=== PATIENT | female | born 1955 | race Caucasian/White ===

== ENCOUNTER 2017-02-09 10:37 | Day surgery (SDC) | payer OTHER ==
[2017-02-07 10:31] VITALS: BMI 20.1
[~2017-02-09 10:37] MED LIST: LACTATED RINGERS 1,000 ML IV SCH
[2017-02-09 11:02] VITALS: TEMP 98.4
[2017-02-09] MEDS ORDERED: PROPOFOL 10 MG/ML 20 ML VIAL IV ONE (11:26)
--- NOTE | 2017-02-09 11:44 | P.PCN ---
Date of Procedure: 02/09/17 Procedure(s) Performed: BRIEF HISTORY: Patient is a 61-year-old pleasant female, scheduled for an elective colonoscopy as a part of screening for colonic neoplasia. PROCEDURE PERFORMED: Colonoscopy with snare polypectomy PREOPERATIVE DIAGNOSIS: Screening for colon cancer IV sedation per Anesthesia. PROCEDURE: After informed consent was obtained, the patient, was brought into the endoscopy unit. IV sedation was administered by Anesthesia under continuous monitoring. Digital rectal examination was normal. Initially the Olympus CF- 160 flexible video colonoscope was then inserted in the rectum, gradually advanced into the cecum without any difficulty. Careful examination was performed as the scope was gradually being withdrawn. Ileocecal valve and the appendiceal orifice were visualized and appeared normal. Prep was excellent. In the cecum there were 2 small polyps measuring 5 and admitted size both of which were removed by snare polypectomy. Mucosa of the cecum, ascending colon appeared normal. In the hepatic flexure there were 2 polyps measuring 15 mm and 1 cm in size removed by snare polypectomy. The rest of the transverse colon , descending colon, sigmoid colon, and rectum appeared normal. in the sigmoid colon there was a 1 cm polyp removed by snare polypectomy. Retroflexion was performed in the rectum and no lesions were seen. The patient tolerated the procedure well. IMPRESSION: 5 mm 2 cecal polyps status post polypectomy 1 cm and 5 mm hepatic flexure polyps status post snare polypectomy 1 m sigmoid colon polyp status post snare polypectomy RECOMMENDATIONS: Findings of this examination were discussed with the patient as well as her family. She was advised to follow with the biopsy results. If the biopsy shows a tubular adenoma she can have a repeat colonoscopy in 5 years.
[2017-02-09 12:04] VITALS: BP 101/70; PULSE 75; RESP 18
== END 2017-02-09 12:38 | disposition home or self-care (01) ==
LOC: ORWHC2ENDO 10:37
PROVIDERS: ATTEND Internal Medicine Gastroenterology
DX: Z12.11 Encounter for screening for malignant neoplasm of colon (principal); D12.0 Benign neoplasm of cecum; D12.3 Benign neoplasm of transverse colon; D12.5 Benign neoplasm of sigmoid colon; Z86.010 Personal history of colon polyps; Z79.899 Other long term (current) drug therapy; G43.909 Migraine, unspecified, not intractable, without status migrainosus; K21.9 Gastro-esophageal reflux disease without esophagitis
CPT/HCPCS: 88305; 45385; J2704

== ENCOUNTER → 2018-02-22 | Outpatient (CLI) | payer BC ==
--- NOTE | 2018-02-22 18:29 | US ---
EXAMINATION TYPE: US carotid duplex BILAT DATE OF EXAM: 02/22/2018 COMPARISON: NONE CLINICAL HISTORY: I65.29 OCCLUSION AND STENOSIS OF CAROTID ARTERY. EXAM MEASUREMENTS: RIGHT: Peak Systolic Velocity (PSV) cm/sec ----- Right CCA: 72.1 ----- Right ICA: 91.0 ----- Right ECA: 89.5 ICA/CCA ratio: 1.3 RIGHT: End Diastole cm/sec ----- Right CCA: 19.8 ----- Right ICA: 29.9 ----- Right ECA: 27.0 LEFT: Peak Systolic Velocity (PSV) cm/sec ----- Left CCA: 88.2 ----- Left ICA: 107.6 ----- Left ECA: 95.3 ICA/CCA ratio: 1.2 LEFT: End Diastole cm/sec ----- Left CCA: 26.8 ----- Left ICA: 47.8 ----- Left ECA: 22.8 VERTEBRALS (direction of flow): Right Vertebral: Antegrade Left Vertebral: Antegrade Rhythm: Arrhythmia noted in image 46 on the left side Moderate amount of plaque visualized in bilateral bulbs. No elevated velocities, no significant steno sis. IMPRESSION: There is antegrade flow in the vertebral arteries. The images and measurements suggest l ess than 25% stenosis in both internal carotid arteries. Criteria for Assigning % of Stenosis / Diameter reduction (Estimation based on the indirect measurements of the internal carotid artery velocities (ICA PSV). 1. Normal (no stenosis)=ICA PSV < 125 cm/s: ratio < 2.0: ICA EDV<40 cm/s. 2. Less than 50% stenosis=ICA PSV < 125 cm/s: ratio < 2.0: ICA EDV<40 cm/s. 3. 50 to 69% stenosis=ICA PSV of 125 to 230 cm/s: ration 2.0 ? 4.0: ICA EDV 40-100 cm/s. 4. Greater than 70% stenosis to near occlusion= ICA PSV > 230 cm/s: ratio > 4.0: ICA EDV > 100 cm/s. 5. Near occlusion= ICA PSV velocities may be low or undetectable: variable ratio and ICA EDV. 6. Total occlusion=unable to detect flow.
== END | disposition home or self-care (01) ==
LOC: RADUSWWP 16:45
PROVIDERS: ATTEND Family Medicine
DX: I65.29 Occlusion and stenosis of unspecified carotid artery (principal)
CPT/HCPCS: 93880

== ENCOUNTER 2022-10-01 08:52 | Day surgery (SDC) | payer OTHER, MEDICARE ==
[~2022-10-01 08:52] MED LIST changes: +LIDOCAINE 1% (10MG/ML) FOR IV START INTRADERMA PRN
[2022-10-01 10:06] VITALS: TEMP 97.7
[2022-10-01] MEDS ORDERED: LIDOCAINE 2% INJ 20 MG/ML (2 ML VIAL) ONE (11:23)
[2022-10-01] MEDS ORDERED: PROPOFOL 10 MG/ML 20 ML VIAL IV ONE (11:23)
[2022-10-01] MEDS ORDERED: LACTATED RINGERS 1,000 ML IV ONE (11:24)
--- NOTE | 2022-10-01 11:40 | P.PCN ---
Date of Procedure: 10/01/22 Procedure(s) Performed: BRIEF HISTORY: Patient is a 67-year-old pleasant female scheduled for an elective colonoscopy as a part of evaluation of prior history of colon polyps. Last colonoscopy was 5 years ago. PROCEDURE PERFORMED: Colonoscopy. PREOPERATIVE DIAGNOSIS: History of colon polyps. IV sedation per Anesthesia. PROCEDURE: After informed consent was obtained, the patient, was brought into the endoscopy unit. IV sedation was administered by Anesthesia under continuous monitoring. Digital rectal examination was normal. Initially the Olympus CF-160 flexible video colonoscope was then inserted in the rectum, gradually advanced into the cecum without any difficulty. Careful examination was performed as the scope was gradually being withdrawn. Ileocecal valve and the appendiceal orifice were visualized and appeared normal. Prep was excellent. Mucosa of the cecum, ascending colon, transverse colon, descending colon, sigmoid colon, and rectum appeared normal. Retroflexion was performed in the rectum and no lesions were seen. The patient tolerated the procedure well. IMPRESSION: Normal-appearing colon from rectum to cecum with no evidence of colorectal neoplasia. RECOMMENDATIONS: Findings of this examination were discussed with the patient as well as a family. She was advised to have a repeat colonoscopy in 5 years from now because of prior history of colon polyps.
[2022-10-01 12:23] VITALS: BP 124/84; PULSE 61; RESP 18
== END 2022-10-01 12:23 | disposition home or self-care (01) ==
LOC: ORWHC2ENDO 08:52
PROVIDERS: ATTEND Internal Medicine Gastroenterology
DX: Z12.11 Encounter for screening for malignant neoplasm of colon (principal); I10 Essential (primary) hypertension; F17.210 Nicotine dependence, cigarettes, uncomplicated; G43.909 Migraine, unspecified, not intractable, without status migrainosus; K21.9 Gastro-esophageal reflux disease without esophagitis; I69.312 Visuospatial deficit and spatial neglect following cerebral infarction; Z86.010 Personal history of colon polyps; Z79.899 Other long term (current) drug therapy
CPT/HCPCS: 45378; J2704; J2001

== ENCOUNTER → 2023-01-31 | Outpatient (CLI) | payer OTHER, MEDICARE ==
--- NOTE | 2023-01-31 13:44 | CT ---
EXAMINATION TYPE: CT chest wo con CT DLP: 213 mGycm, Automated exposure control for dose reduction was used. DATE OF EXAM: 01/31/2023 1:14 PM COMPARISON: None CLINICAL INDICATION:Female, 67 years old with history of J44.9 CHRONIC OBSTRUCTIVE PULMONARY DISEASE, ; PHH, COPD TECHNIQUE: Multiple axial images were obtained through the chest without IV contrast. Lack of IV or o ral contrast limits evaluation of solid and hollow organ viscera. . Coronal and sagittal reformats re viewed. FINDINGS: LUNGS/ PLEURA: Moderate centrilobular emphysematous changes. No focal consolidation, pneumothorax, or pleural effusion. No suspicious pulmonary nodule or mass. AIRWAY: Patent and unremarkable.. HEART: Size within normal limits. No pericardial effusion. Moderate coronary arterial calcifications. . MEDIASTINUM: Enlarged 1.2 cm short axis subcarinal lymph node (series 3, age 24). VASCULATURE: Ectasia of the ascending thoracic aorta measuring up to 3.9 cm. MUSCULOSKELETAL: No acute osseous abnormalities. No aggressive osseous lesion. SOFT TISSUES/LYMPH NODES: Bilateral breast prosthesis. LOWER NECK: No significant findings. UPPER ABDOMEN: No significant findings. IMPRESSION: 1. No acute thoracic process. 2. Moderate COPD changes. 3. Ectasia of the ascending thoracic aorta measuring up to 3.9 cm. 4. Mildly enlarged nonspecific 1.2 cm short axis subcarinal lymph node.
== END | disposition home or self-care (01) ==
LOC: RADCTMAIN 12:38
PROVIDERS: ATTEND Family Medicine
DX: J44.9 Chronic obstructive pulmonary disease, unspecified (principal); I77.810 Thoracic aortic ectasia; R59.0 Localized enlarged lymph nodes
CPT/HCPCS: 71250

== ENCOUNTER → 2023-05-26 | Outpatient (CLI) | payer OTHER, MEDICARE ==
--- NOTE | 2023-05-26 12:13 | CT ---
EXAMINATION TYPE: CT chest wo con DATE OF EXAM: 05/26/2023 COMPARISON: Prior chest CT January 31, 2023 HISTORY: ENLARGED LYMPH NODES CT DLP: 193.0 mGycm. Automated Exposure Control for Dose Reduction was Utilized. TECHNIQUE: CT scan of the thorax is performed without IV contrast. FINDINGS: LUNGS: Moderate to advanced underlying emphysematous change greatest in the bilateral upper lobes is redemonstrated. No new focal consolidation. There is no pleural effusion or pneumothorax seen. The tracheobronchial tree is patent. MEDIASTINUM: Lack of IV contrast is noted to limit evaluation for mediastinal and especially hilar ad enopathy. Stable slightly enlarged 1.9 x 1.2 cm pericarinal lymph node axial image 24. Stable promine nt but subcentimeter additional scattered mediastinal lymph nodes. Severe three-vessel coronary arter y calcification is present. No cardiomegaly or pericardial effusion is seen. Ascending aortic aneury sm up to 3.8 cm noted on current study OTHER:. Bilateral breast implants redemonstrated. Slight scoliotic curvature or positioning again see n. IMPRESSION: Chronic emphysematous change without acute pulmonary process. Stable nonspecific slightly enlarged paracarinal lymph node. No new adenopathy is present.
== END | disposition home or self-care (01) ==
LOC: RADCTMAIN 11:40
PROVIDERS: ATTEND Family Medicine
DX: J43.9 Emphysema, unspecified (principal); R59.0 Localized enlarged lymph nodes
CPT/HCPCS: 71250

== ENCOUNTER → 2023-08-10 | Outpatient (CLI) | payer OTHER, MEDICARE ==
[2023-08-10 11:02] VITALS: BP 166/88; PULSE 99; RESP 15; TEMP 98.5
--- NOTE | 2023-08-10 12:28 | XR ---
EXAMINATION TYPE: XR lumbar spine 2 or 3V DATE OF EXAM: 08/10/2023 11:24 AM CLINICAL INDICATION:Female, 67 years old with history of M51.36 Other DDD; COMPARISON: None TECHNIQUE: XR lumbar spine 2 or 3V - Frontal, lateral and coned in L5-S1 lateral views of the spine. FINDINGS: No evidence of any acute osseous pathology. There is mild vertebral body wedging at multipl e levels.. There is scoliosis alignment of the lumbar vertebral bodies apex left L3. Scattered disc s pace narrowing. Multilevel marginal osteophyte formation throughout the visualized spine. There is fa cet joint arthropathy throughout the spine. Scattered at least mild neural foraminal stenosis. This c ourse of the arterial vasculature. IMPRESSION: 1. No acute fracture. 2. Moderate to severe degeneration with scoliosis.
--- NOTE | 2023-08-10 13:52 | P.PAINPG ---
PQRS Measure Charge Sheet Comment: HISTORY OF PRESENT ILLNESS: A 67 yr old female as a referral from Dr Hearn presents today w severe and chronic LBP > 30 yrs secondary to DDD, spondylosis and facet arthropathy without myelopathy for evaluation. Pt states pain level is provoked at 6 /10 in intensity, constant, localized in the lower lumbar spine, predominantly axial, dull in character w occasional shooting pain towards the back of the LLE. Pain is provoked by standing for periods > 20 min. Pain is alleviated by PT in the , medications (Zanaflex, Advil), repositioning and rest. Oswestry axial pain score at 31. PMH: OA, HTN, Hyperlipidemia, GERD, COPD, Glaucoma, Seasonal/ Indoor Allergies PSH: Colonoscopy (2016, 2022), SH: Hx of tobacco use, Occasional ETOH use, No illicit drug use FH: Non contributory All: See list Meds: See list REVIEW OF ORGAN SYSTEMS: CONSTITUTIONAL: No fevers or chills. No recent weight loss. NEUROLOGICAL: + numbness and tingling along the distal extremities. No seizure disorders or headaches. MUSCULOSKELETAL: + pain PSYCHIATRIC: Denies current depression or suicidal thoughts. Physical Examinations : Constitutional : Cooperative , not in acute distress . Neurologic : Cranial nerve II to XII intact. No focal neurological deficits. Psychiatric : alert & oriented x 3. Matching mood & appropriate affect. Judgment & insight intact. Musculoskeletal : Cervical Spine Motor strength in the deltoid and biceps: Normal right side. Normal Left side Motor strength biceps and the wrist extensors: Normal right side . Normal left side Motor strength in the triceps muscle: Normal right side. Normal left side Deep tendon reflexes: Normal at the biceps. Normal at Brachioradialis. Normal at triceps Vertebral body tenderness to deep palpation over Cervical facet loading test: positive bilaterally Spurling test: positive bilaterally Neck distraction test: positive bilaterally Nir sign: positive bilaterally Lumbar spine Motor strength lower extremities ,thigh and legs 5/5 Right side , 5/5 Left side Deep tendon reflexes : Normal Knee Jerk. Normal Ankle Jerk Vertebral body tenderness over Julio Test positive L4, L5 BL Lumbar facet Loading Test: positive Right / positive Left Range of motion of the lumbar spine Flexion 30 degrees, extension 10 degrees Straight Leg Raise test: Left/ Right positive at degree Paras test: positive right / positive left. Severe tenderness over the Sacroiliac joint on the Right / Left sides Gaenslen test: positive bilaterally Seated flexion test: positive bilaterally. Sacral spine : Severe tenderness over the Sacroiliac joint: right side / left side Range of motion: Flexion of the lumbar spine <60 degrees Range of motion: Extension of the lumbar spine <20 degrees Gaenslen's Test positive Paras test: positive right side / left side Thigh Thrust Test Sacral Thrust Test Imaging: None on file Assessment/ Plan : Lumbar DDD Recommendation of lumbar x ray and PT x 6 wks M51.36 May need additional imaging if indicated. All questions answered. I have spent greater than 30 minutes on patient care today. Dr Barrientos was available by phone for the evaluation of this patient. The time was used to review the medical records including relevant urine studies and Prescription history (MAPs), review of the available imaging, evaluation and examination of the patient, coordination of care with the medical staff and if applicable referring physicians, as well as creation of the medical record PQRS Narrative: Smoking Status Current every day smoker Home Medications: Ambulatory Orders raNITIdine HCL [Zantac] 75 mg PO DAILY PRN 02/07/17 Cetirizine HCl [Zyrtec] 10 mg PO DAILY 09/28/22 Losartan Potassium 100 mg PO DAILY 09/28/22 Omeprazole 40 mg PO DAILY 09/28/22 Controlled Substance Measures - Controlled Substance Measures Is patient prescribed a controlled substance at discharge?: No
== END ==
LOC: PNWHC3 10:26
PROVIDERS: ATTEND Specialist
DX: M51.36 Other intervertebral disc degeneration, lumbar region (principal); M41.9 Scoliosis, unspecified; M47.817 Spondylosis without myelopathy or radiculopathy, lumbosacral region; F17.200 Nicotine dependence, unspecified, uncomplicated
CPT/HCPCS: 72100; 99211

== ENCOUNTER → 2023-09-21 | Outpatient (CLI) | payer OTHER, MEDICARE ==
[2023-09-21 10:43] VITALS: BP 177/91; PULSE 71; RESP 16; TEMP 96.4
--- NOTE | 2023-09-21 13:36 | P.PAINPG ---
PQRS Measure Charge Sheet Comment: HISTORY OF PRESENT ILLNESS: A 67 yr old female presents today w severe and chronic LBP > 30 yrs secondary to DDD, spondylosis and facet arthropathy without myelopathy for evaluation. Pt states pain level is provoked at 8 /10 in intensity, constant, localized in the lower lumbar spine, predominantly axial, dull in character w occasional shooting pain towards the back of the LLE. Pain is provoked by standing for periods > 20 min. Pain is alleviated by PT x 6 wks in Jul-Aug 2023, physician guided exercises/ stretches daily since Aug 2023, use of a TENS unit at PT, medications, repositioning and rest. Oswestry axial pain score at 30. Interventional procedures include Medications include Zanaflex, Advil REVIEW OF ORGAN SYSTEMS: CONSTITUTIONAL: No fevers or chills. No recent weight loss. NEUROLOGICAL: + numbness and tingling along the distal extremities. No seizure disorders or headaches. MUSCULOSKELETAL: + pain PSYCHIATRIC: Denies current depression or suicidal thoughts. Physical Examinations : Constitutional : Cooperative , not in acute distress . Neurologic : Cranial nerve II to XII intact. No focal neurological deficits. Psychiatric : alert & oriented x 3. Matching mood & appropriate affect. Judgment & insight intact. Musculoskeletal : Cervical Spine Motor strength in the deltoid and biceps: Normal right side. Normal Left side Motor strength biceps and the wrist extensors: Normal right side . Normal left side Motor strength in the triceps muscle: Normal right side. Normal left side Deep tendon reflexes: Normal at the biceps. Normal at Brachioradialis. Normal at triceps Vertebral body tenderness to deep palpation over Cervical facet loading test: positive bilaterally Spurling test: positive bilaterally Neck distraction test: positive bilaterally Nir sign: positive bilaterally Lumbar spine Motor strength lower extremities ,thigh and legs 5/5 Right side , 5/5 Left side Deep tendon reflexes : Normal Knee Jerk. Normal Ankle Jerk Vertebral body tenderness over Julio Test positive L4, L5 BL Lumbar facet Loading Test: positive Right / positive Left Range of motion of the lumbar spine Flexion 30 degrees, extension 10 degrees Straight Leg Raise test: Left/ Right positive at degree Paras test: positive right / positive left. Severe tenderness over the Sacroiliac joint on the Right / Left sides Gaenslen test: positive bilaterally Seated flexion test: positive bilaterally. Sacral spine : Severe tenderness over the Sacroiliac joint: right side / left side Range of motion: Flexion of the lumbar spine <60 degrees Range of motion: Extension of the lumbar spine <20 degrees Gaenslen's Test positive Paras test: positive right side / left side Thigh Thrust Test Sacral Thrust Test Imaging: Lumbar x ray from 08/10/23 reviewed Assessment/ Plan : Lumbar DDD Recommendation of TENS unit at home, lumbar MRI M51.36 . All questions answered. I have spent greater than 30 minutes on patient care today. Dr Barrientos was available by phone for the evaluation of this patient. The time was used to review the medical records including relevant urine studies and Prescription history (MAPs), review of the available imaging, evaluation and examination of the patient, coordination of care with the medical staff and if applicable referring physicians, as well as creation of the medical record PQRS Narrative: Smoking Status Current every day smoker Hx Alcohol Use (MH) No Home Medications: Ambulatory Orders raNITIdine HCL [Zantac] 75 mg PO DAILY PRN 02/07/17 Cetirizine HCl [Zyrtec] 10 mg PO DAILY 09/28/22 Losartan Potassium 100 mg PO DAILY 09/28/22 Omeprazole 40 mg PO DAILY 09/28/22 Controlled Substance Measures - Controlled Substance Measures Is patient prescribed a controlled substance at discharge?: No
== END ==
LOC: PNWHC3 08:28
PROVIDERS: ATTEND Specialist
DX: M51.36 Other intervertebral disc degeneration, lumbar region (principal); M47.816 Spondylosis without myelopathy or radiculopathy, lumbar region; G89.29 Other chronic pain; F17.200 Nicotine dependence, unspecified, uncomplicated
CPT/HCPCS: 99211

== ENCOUNTER → 2023-10-19 | Outpatient (CLI) | payer OTHER, MEDICARE ==
--- NOTE | 2023-10-20 23:18 | MR ---
EXAMINATION TYPE: MR lumbar spine wo con DATE OF EXAM: 10/19/2023 COMPARISON: None HISTORY: Chronic lower back pain, left side CONTRAST: 0 mL intravenous Gadavist. TECHNIQUE: Multiplanar, multisequence images of the lumbar spine were acquired. FINDINGS: Degenerative disc changes with loss of disc height are present L2-3 L3-4 L4-5. Grade 1 ret rolisthesis of L3 on L4 and L4 posterior on L5 is present. There is grade 1-2 anterolisthesis of L5 a nteriorly on S1. L5-S1: There is loss of disc height this level. No spinal canal stenosis. There is a grade 2 spondylo listhesis of L5 anteriorly on S1. Bilateral foraminal stenosis present. Correlate with S1 radicular s ymptoms . L4-L5: Mild disc degenerative changes are present No spinal canal stenosis. Mild left foraminal gulshan rowing present . L3-L4: Degenerative disc changes are present. No residual disc bulge is evident. No spinal canal sten osis is present. Facet hypertrophy is present greater on the left. No lateral canal narrowing is evid ent. Mild foraminal narrowing is present L2-L3: Mild residual disc bulge is present with anterior thecal sac flattening. Facet hypertrophy and ligamentum flavum laxity is present with right posterior lateral thecal sac compression. No spinal canal stenosis. Moderate right foraminal stenosis is present. Mild left foraminal narrowing is prese nt . L1-L2: No significant disc bulge or disc herniation. No spinal canal stenosis. No foraminal stenosi s. . T12-L1: No significant disc bulge or disc herniation. No spinal canal stenosis. No foraminal stenos is. IMPRESSION: 1. 3 level degenerative disc changes. 2. Grade 1 retrolisthesis of C3 on 4 and 4 on 5. A grade 2 spondylolisthesis of L5 anteriorly on S1 a ppears to be present. 3. Very severe foraminal stenosis bilaterally L5-S1 there is some moderate to severe foraminal narrow ing in the mid lumbar spine
== END | disposition home or self-care (01) ==
LOC: RADMRIMAIN 11:32
PROVIDERS: ATTEND Specialist
DX: M51.36 Other intervertebral disc degeneration, lumbar region (principal); M43.17 Spondylolisthesis, lumbosacral region; M43.12 Spondylolisthesis, cervical region; M99.73 Connective tissue and disc stenosis of intervertebral foramina of lumbar region
CPT/HCPCS: 72148

== ENCOUNTER → 2023-10-31 | Outpatient (CLI) | payer OTHER, MEDICARE ==
[2023-10-31 10:31] VITALS: BP 172/92; PULSE 72; RESP 16; TEMP 96.9
--- NOTE | 2023-10-31 15:02 | P.PAINPG ---
PQRS Measure Charge Sheet Comment: HISTORY OF PRESENT ILLNESS: A 68 yr old female presents today w severe and chronic LBP > 30 yrs secondary to DDD, spondylosis and facet arthropathy without myelopathy for evaluation. Pt states pain level is provoked at 8 /10 in intensity, constant, localized in the lower lumbar spine, predominantly axial, dull in character w occasional shooting pain towards the back of the LLE. Pain is provoked by standing for periods > 20 min. Pain is alleviated by PT x 6 wks in Jul-September 2023, physician guided exercises/ stretches daily since Aug 2023, use of a TENS unit at PT, medications, repositioning and rest. Oswestry axial pain score at 30. Interventional procedures include Medications include Zanaflex, Advil REVIEW OF ORGAN SYSTEMS: CONSTITUTIONAL: No fevers or chills. No recent weight loss. NEUROLOGICAL: + numbness and tingling along the distal extremities. No seizure disorders or headaches. MUSCULOSKELETAL: + pain PSYCHIATRIC: Denies current depression or suicidal thoughts. Physical Examinations : Constitutional : Cooperative , not in acute distress . Neurologic : Cranial nerve II to XII intact. No focal neurological deficits. Psychiatric : alert & oriented x 3. Matching mood & appropriate affect. Judgment & insight intact. Musculoskeletal : Cervical Spine Motor strength in the deltoid and biceps: Normal right side. Normal Left side Motor strength biceps and the wrist extensors: Normal right side . Normal left side Motor strength in the triceps muscle: Normal right side. Normal left side Deep tendon reflexes: Normal at the biceps. Normal at Brachioradialis. Normal at triceps Vertebral body tenderness to deep palpation over Cervical facet loading test: positive bilaterally Spurling test: positive bilaterally Neck distraction test: positive bilaterally Nir sign: positive bilaterally Lumbar spine Motor strength lower extremities ,thigh and legs 5/5 Right side , 5/5 Left side Deep tendon reflexes : Normal Knee Jerk. Normal Ankle Jerk Vertebral body tenderness over L5 Julio Test positive L4- L5 L > R Lumbar facet Loading Test: positive Right / positive Left Range of motion of the lumbar spine Flexion 30 degrees, extension 10 degrees Straight Leg Raise test: Left/ Right positive at degree Paras test: positive right / positive left. Severe tenderness over the Sacroiliac joint on the Right / Left sides Gaenslen test: positive bilaterally Seated flexion test: positive bilaterally. Sacral spine : Severe tenderness over the Sacroiliac joint: right side / left side Range of motion: Flexion of the lumbar spine <60 degrees Range of motion: Extension of the lumbar spine <20 degrees Gaenslen's Test positive Paras test: positive right side / left side Thigh Thrust Test Sacral Thrust Test Imaging: Lumbar x ray from 08/10/23 reviewed MRI non contrast of the lumbar spine form 10/20/23 reviewed Assessment/ Plan : Lumbar DDD Recommendation of L paramedian MIGUEL ANGEL L5-S1 #1. May need a series of injections for optimal pain relief. Risks, benefits of procedure discussed and patient verbalized understanding. Protocol for discontinuation/continuation of medication surrounding procedure discussed. All questions answered. I have spent greater than 30 minutes on patient care today. Dr Barrientos was available by phone for the evaluation of this patient. The time was used to review the medical records including relevant urine studies and Prescription history (MAPs), review of the available imaging, evaluation and examination of the patient, coordination of care with the medical staff and if applicable referring physicians, as well as creation of the medical record PQRS Narrative: Smoking Status Current every day smoker Hx Alcohol Use (MH) No Home Medications: Ambulatory Orders raNITIdine HCL [Zantac] 75 mg PO DAILY PRN 02/07/17 Cetirizine HCl [Zyrtec] 10 mg PO DAILY 09/28/22 Losartan Potassium 100 mg PO DAILY 09/28/22 Omeprazole 40 mg PO DAILY 09/28/22 Controlled Substance Measures - Controlled Substance Measures Is patient prescribed a controlled substance at discharge?: No
== END ==
LOC: PNWHC3 10:11
PROVIDERS: ATTEND Specialist
DX: M51.36 Other intervertebral disc degeneration, lumbar region (principal); F17.200 Nicotine dependence, unspecified, uncomplicated
CPT/HCPCS: 99211

== ENCOUNTER 2023-11-18 09:59 | Day surgery (SDC) | payer OTHER, MEDICARE ==
[~2023-11-18 09:59] MED LIST changes: -LIDOCAINE 1% (10MG/ML) FOR IV START INTRADERMA PRN
[2023-11-18 10:27] VITALS: TEMP 97.1
[2023-11-18] MEDS ORDERED: methylPREDNISolone ACETATE 80 MG/ML 1 ML VIAL ONE (10:59)
[2023-11-18] MEDS ORDERED: IOPAMIDOL M200 10 ML VIAL ONE (10:59)
--- NOTE | 2023-11-18 11:05 | P.PCN ---
Date of Procedure: 11/18/23 Procedure(s) Performed: PREOPERATIVE DIAGNOSIS: 1- Lumbar Degenerative Disc Diseases 2-Lumbar spondylosis with Facet arthropathy without myelopathy. 3-lumbar spinal stenosis POSTOPERATIVE DIAGNOSIS: 1-lumbar degenerative disc disease. 2-lumbar spondylosis with facet arthropathy without myelopathy. 3-lumbar spinal stenosis. PROCEDURE 1. Lumbar epidural steroid injection under fluoroscopic guidance at the L5-S1 level. (Fluoroscopy imaging was available in radiology department) 2. Lumbar epidurogram. ANESTHESIA: Lidocaine 1% 3 and then only. EBL: Minimal PROCEDURE INDICATION: The patient with low back pain and radiculitis symptoms unresponsive to conservative treatment. Fluoroscopy was used to optimize visualization of the needle placement and to maximize safety. PROCEDURE DESCRIPTION / TECHNIQUE: The patient was seen and identified in the preoperative area. Risks, benefits, complications including but not limited to infections ,bleeding ,allergic reaction to the medications ,nerve damage and not complete pain releife , and alternatives were discussed with the patient. The patient agreed to proceed with the procedure and signed the consent, and vital signs were stable. Patient was taken to the OR and time out was completed. The patient was placed in the prone position on procedure table and a pillow was placed under the abdomen to reduce lumbar lordosis. The lumbosacral area was prepped and draped in the usual sterile fashion.ere closely monitored during the procedure. Vital signs was monitered during the entire procedure. Using anterior-posterior fluoroscopy, the L5-S1 interlaminar space was identified and the skin over this site was marked and then infiltrated with 1% lidocaine subcutaneously. Subsequently, a 20-gauge Tuohy epidural needle was inserted and advanced toward the epidural space using the ``Loss of resistance technique and guided by AP and lateral fluoroscopy. The correct needle position in the epidural space was verified with the injection of 2 mL of the water soluble contrast dye Isovue 200 contrast and observing an excellent epidurogram with the epidural spread of the dye, after negative aspiration for blood and CSF and in the absence of paresthesias. Again after negative aspiration, a 5 ml mixture containing 60 mg of Depo-medrol ( Preservetive Free ), and 2 ml of preservative free Normal Saline, and 2 ml of preservative free lidocaine 1% solution was injected and a washout of epidurogram was seen. Needle was withdrawn intact, skin was cleansed, and bandages were applied. COMPLICATIONS: None DISPOSITION / PLANS: The patient was placed in a supine position and transferred to the recovery area in a stable condition for observation. There was no evidence of lower extremity motor or sensory deficit after the procedure. Patient was discharged from the recovery room after meeting discharge criteria. Home discharge instructions were given to the patient by the staff. The patient was reexamined prior to discharge. The patient will schedule a follow up in the clinic in 2-4 weeks.
--- NOTE | 2023-11-18 11:39 | FL ---
EXAMINATION TYPE: FL guided pain mgmt statistic DATE OF EXAM: 11/18/2023 FLUOROSCOPY LUMBAR RADICULOPATHY Lumbar pain injection procedure. DR. KIRKLAND FLUORO 2 SEC DAP .[id number] mGycm2
[2023-11-18 11:43] VITALS: BP 103/72; RESP 18
[2023-11-18 11:46] VITALS: PULSE 68
== END 2023-11-18 11:45 | disposition home or self-care (01) ==
LOC: ORPAIN 09:59
PROVIDERS: ATTEND Specialist
DX: M48.061 Spinal stenosis, lumbar region without neurogenic claudication (principal); M47.26 Other spondylosis with radiculopathy, lumbar region; M51.16 Intervertebral disc disorders with radiculopathy, lumbar region; Z79.82 Long term (current) use of aspirin; Z79.899 Other long term (current) drug therapy
CPT/HCPCS: 62323; Q9966; J1010

== ENCOUNTER → 2023-12-07 | Outpatient (CLI) | payer OTHER, MEDICARE ==
[2023-12-07 11:41] VITALS: BP 180/80; PULSE 65; RESP 16
--- NOTE | 2023-12-07 14:04 | P.PAINPG ---
PQRS Measure Charge Sheet Comment: HISTORY OF PRESENT ILLNESS: A 68 yr old female presents today w severe and chronic LBP > 30 yrs secondary to DDD, spondylosis and facet arthropathy without myelopathy for evaluation s/p MIGUEL ANGEL L5-S1 #1. Pt states she experienced 0 % pain relief x 3 wks s/p procedure. Pt states pain level is provoked at 7 /10 in intensity, constant, localized in the lower lumbar spine, predominantly axial, dull in character w occasional shooting pain towards the back of the LLE. Pain is provoked by standing for periods > 20 min. Pain is alleviated by PT x 6 wks in Jul-September 2023, physician guided exercises/ stretches daily since Aug 2023, use of a TENS unit at PT, medications, repositioning and rest. Oswestry axial pain score at 30. Interventional procedures include MIGUEL ANGEL L5-S1 x1 Medications include Zanaflex, Advil REVIEW OF ORGAN SYSTEMS: CONSTITUTIONAL: No fevers or chills. No recent weight loss. NEUROLOGICAL: + numbness and tingling along the distal extremities. No seizure disorders or headaches. MUSCULOSKELETAL: + pain PSYCHIATRIC: Denies current depression or suicidal thoughts. Physical Examinations : Constitutional : Cooperative , not in acute distress . Neurologic : Cranial nerve II to XII intact. No focal neurological deficits. Psychiatric : alert & oriented x 3. Matching mood & appropriate affect. Judgment & insight intact. Musculoskeletal : Cervical Spine Motor strength in the deltoid and biceps: Normal right side. Normal Left side Motor strength biceps and the wrist extensors: Normal right side . Normal left side Motor strength in the triceps muscle: Normal right side. Normal left side Deep tendon reflexes: Normal at the biceps. Normal at Brachioradialis. Normal at triceps Vertebral body tenderness to deep palpation over Cervical facet loading test: positive bilaterally Spurling test: positive bilaterally Neck distraction test: positive bilaterally Nir sign: positive bilaterally Lumbar spine Motor strength lower extremities ,thigh and legs 5/5 Right side , 5/5 Left side Deep tendon reflexes : Normal Knee Jerk. Normal Ankle Jerk Vertebral body tenderness Julio Test positive Lumbar facet Loading Test: positive Right / positive Left L4-L5, L5-S1 Range of motion of the lumbar spine Flexion 30 degrees, extension 10 degrees Straight Leg Raise test: Left/ Right positive at degree Paras test: positive right / positive left. Severe tenderness over the Sacroiliac joint on the Right / Left sides Gaenslen test: positive bilaterally Seated flexion test: positive bilaterally. Sacral spine : Severe tenderness over the Sacroiliac joint: right side / left side Range of motion: Flexion of the lumbar spine <60 degrees Range of motion: Extension of the lumbar spine <20 degrees Gaenslen's Test positive Paras test: positive right side / left side Thigh Thrust Test Sacral Thrust Test Imaging: Lumbar x ray from 08/10/23 reviewed MRI non contrast of the lumbar spine form 10/20/23 reviewed Assessment/ Plan : Lumbar DDD Recommendation of BL MBB L4-L5, L5-S1 #1. May need a series of injections, u p until RFA, for optimal pain relief. Risks, benefits of procedure discussed and patient verbalized understanding. Protocol for discontinuation/continuation of medication surrounding procedure discussed. Minimal anesthesia including Fentanyl and Versed if indicated. Recommendation of medication management. [place] 5/325mg #60 w 1 RF. Use, side effects, adverse reactions, safe storage discussed. Opiate/ narcotic agreement signed 12/07/23. All questions answered. I have spent greater than 30 minutes on patient care today. Dr Barrientos was available by phone for the evaluation of this patient. The time was used to review the medical records including relevant urine studies and Prescription history (MAPs), review of the available imaging, evaluation and examination of the patient, coordination of care with the medical staff and if applicable referring physicians, as well as creation of the medical record PQRS Narrative: Smoking Status Current every day smoker Hx Alcohol Use (MH) No Home Medications: Ambulatory Orders Cetirizine HCl [Zyrtec] 10 mg PO DAILY 09/28/22 Losartan Potassium 100 mg PO DAILY 09/28/22 Omeprazole 40 mg PO DAILY 09/28/22 Aspirin [[place] Aspirin EC] 81 mg PO DAILY 11/09/23 HYDROcodone/APAP 5-325MG [[place] 5-325] 1 tab PO Q4HR PRN 3 Days #15 tab 11/09/23 Ibuprofen [Advil] 400 mg PO Q6HR PRN 11/09/23 Levocetirizine Dihydrochloride [Xyzal] 5 mg PO DAILY 11/09/23 Pravastatin Sodium [Pravachol] 20 mg PO DAILY 11/09/23 Sennosides/Docusate Sodium [Senna-S 8.6-50 mg Tablet] 2 each PO DAILY 11/09/23 Controlled Substance Measures - Controlled Substance Measures Is patient prescribed a controlled substance at discharge?: Yes When asked, does pt state using other controlled substances?: No If prescribed controlled substance>3 days was MAPS reviewed?: Yes If Rx opioid, was Start Talking consent form obtained?: Yes Was information provided regarding opioid addiction?: Yes
== END ==
LOC: PNWHC3 11:13
PROVIDERS: ATTEND Specialist
DX: M51.37 Other intervertebral disc degeneration, lumbosacral region (principal); F17.200 Nicotine dependence, unspecified, uncomplicated
CPT/HCPCS: 99211

== ENCOUNTER 2023-12-29 11:01 | Day surgery (SDC) | payer OTHER, MEDICARE ==
[2023-12-29] MEDS ORDERED: LACTATED RINGERS 1,000 ML BAG ONE (13:25)
[2023-12-29] MEDS ORDERED: MIDAZOLAM 2 MG/2 ML VIAL ONE (14:05)
[2023-12-29] MEDS ORDERED: ROPIVACAINE 5MG/ML 20ML VIAL ONE (14:05)
[2023-12-29] MEDS ORDERED: fentaNYL (PF) 50 MCG/ML 2 ML AMP ONE (14:05)
--- NOTE | 2024-02-21 18:19 | FL ---
EXAMINATION TYPE: FL guided pain mgmt statistic DATE OF EXAM: 01/19/2024 1:09 PM COMPARISON: Pre Operative Images if available both CT/MRI or plain film CLINICAL INDICATION: Female, 68 years old with history of LUMBAR DDD PAIN SERVICES; TECHNIQUE: FL guided pain mgmt statistic, multiple fluoroscopic images provided for procedure. Total fluoroscopy time: 10 seconds Total submitted images to PACS: 4 DAP: [id number] mGym2 Gycm2 uGym2 cGycm2 or equivalent. FINDINGS: Fluoroscopic images during injection for pain management demonstrate multilevel degeneration changes throughout the spine. No evidence for fracture. No acute process identified. IMPRESSION: 1. No evidence for intraoperative complication. 2. Please see the operative/procedural note for further details. [facility], , 02/21/2024 6:17 PM
== END 2023-12-29 14:50 ==
LOC: ORPAIN 11:01
PROVIDERS: ATTEND Anesthesiology
DX: M47.816 Spondylosis without myelopathy or radiculopathy, lumbar region (principal); Z79.82 Long term (current) use of aspirin
CPT/HCPCS: 64494 ×2; 64493; J2250; J3010; J2795

== ENCOUNTER → 2024-02-01 | Outpatient (CLI) | payer OTHER, MEDICARE ==
[2024-02-01 11:33] VITALS: BP 164/84; PULSE 76; RESP 19
--- NOTE | 2024-02-08 11:32 | P.PAINPG ---
Objective - Vital Signs Vital signs: Intake & Output 01/31/24 02/01/24 02/01/24 18:59 06:59 18:59 Weight 130 kg PQRS Measure Charge Sheet Comment: HISTORY OF PRESENT ILLNESS: A 68 yr old female presents today w severe and chronic LBP > 30 yrs secondary to radiculopathy, spondylosis and facet arthropathy without myelopathy for evaluation s/p BL MBB L4-L5, L5-S1 #1. Pt states she experienced 0 % pain relief s/p procedure. Pt states pain level is provoked at 7 /10 in intensity, constant, localized in the lower lumbar spine, predominantly axial, dull in character w occasional shooting pain towards the back of the LLE. Pain is provoked by standing for periods > 20 min. Pain is alleviated by PT x 6 wks in Jul-September 2023, physician guided exercises/ stretches daily since Aug 2023, use of a TENS unit at PT, medications, repositioning and rest. Interventional procedures include MIGUEL ANGEL L5-S1 x1, BL MBB L4-L5/ L5-S1 x1 Medications include Zanaflex, Advil REVIEW OF ORGAN SYSTEMS: CONSTITUTIONAL: No fevers or chills. No recent weight loss . NEUROLOGICAL: + numbness and tingling along the distal extremities. No seizure disorders or headaches. MUSCULOSKELETAL: + pain PSYCHIATRIC: Denies current depression or suicidal thoughts. Physical Examinations : Constitutional : Cooperative , not in acute distress . Neurologic : Cranial nerve II to XII intact. No focal neurological deficits. Psychiatric : alert & oriented x 3. Matching mood & appropriate affect. Judgment & insight intact. Musculoskeletal : Cervical Spine Motor strength in the deltoid and biceps: Normal right side. Normal Left side Motor strength biceps and the wrist ext ensors: Normal right side . Normal left side Motor strength in the triceps muscle: Normal right side. Normal left side Deep tendon reflexes: Normal at the biceps. Normal at Brachioradialis. Normal at triceps Vertebral body tenderness to deep palpation over Cervical facet loading test: positive bilaterally Spurling test: positive bilaterally Neck distraction test: positive bilaterally Nir sign: positive bilaterally Lumbar spine Motor strength lower extremities ,thigh and legs 5/5 Right side , 5/5 Left side Deep tendon reflexes : Normal Knee Jerk. Normal Ankle Jerk Vertebral body tenderness Julio Test positive Lumbar facet Loading Test: positive Right / positive Left L4-L5, L5-S1 Range of motion of the lumbar spine Flexion 30 degrees, extension 10 degrees Straight Leg Raise test: Left/ Right positive at degree Paras test: positive right / positive left. Severe tenderness over the Sacroiliac joint on the Right / Left sides Gaenslen test: positive bilaterally Seated flexion test: positive bilaterally. Sacral spine : Severe tenderness over the Sacroiliac joint: right side / left side Range of motion: Flexion of the lumbar spine <60 degrees Range of motion: Extension of the lumbar spine <20 degrees Gaenslen's Test positive Paras test: positive right side / left side Thigh Thrust Test Sacral Thrust Test Imaging: Lumbar x ray from 08/10/23 reviewed MRI non contrast of the lumbar spine form 10/20/23 reviewed Assessment/ Plan : Lumbar radiculopathy Recommendation of medication management. Discontinue [place] 5/325mg #60 and substitute w Percocet 7.5/325mg # 60 w 1 RF. Use, side effects, adverse reactions, safe storage discussed. Opiate/ narcotic agreement signed 02/01/24. All questions answered. I have spent greater than 30 minutes on patient care today. Dr Barrientos was available by phone for the evaluation of this patient. The time was used to review the medical records including relevant urine studies and Prescription history (MAPs), review of the available imaging, evaluation and examination of the patient, coordination of care with the medical staff and if applicable referring physicians, as well as creation of the medical record - Pain Location Lower Back Non-Pharmacological Interventions: Position/Reposition Pharmacological Interventions: Epidural PQRS Narrative: Smoking Status Current every day smoker Hx Alcohol Use (MH) No Home Medications: Ambulatory Orders Cetirizine HCl [Zyrtec] 10 mg PO DAILY 09/28/22 Losartan Potassium 100 mg PO DAILY 09/28/22 Omeprazole 40 mg PO DAILY 09/28/22 Aspirin [[place] Aspirin EC] 81 mg PO DAILY 11/09/23 Ibuprofen [Advil] 400 mg PO Q6HR PRN 11/09/23 Levocetirizine Dihydrochloride [Xyzal] 5 mg PO DAILY 11/09/23 Pravastatin Sodium [Pravachol] 20 mg PO DAILY 11/09/23 Sennosides/Docusate Sodium [Senna-S 8.6-50 mg Tablet] 2 each PO DAILY 11/09/23 oxyCODONE HCL/ACETAMINOPHEN [Percocet 7.5-325 mg Tablet] 1 each PO BID PRN 30 Days #60 tab 02/01/24 oxyCODONE HCL/ACETAMINOPHEN [Percocet 7.5-325 mg] 1 tab PO BID PRN 30 Days #60 tab 02/01/24 Controlled Substance Measures - Controlled Substance Measures Is patient prescribed a controlled substance at discharge?: Yes When asked, does pt state using other controlled substances?: Yes If prescribed controlled substance>3 days was MAPS reviewed?: Yes If Rx opioid, was Start Talking consent form obtained?: Yes Was information provided regarding opioid addiction?: Yes
== END ==
LOC: PNWHC3 11:08
PROVIDERS: ATTEND Specialist
DX: M54.16 Radiculopathy, lumbar region
CPT/HCPCS: 99211

== ENCOUNTER → 2024-03-28 | Outpatient (CLI) | payer OTHER, MEDICARE ==
[2024-03-28 12:08] VITALS: BP 130/94; PULSE 85; RESP 16; TEMP 96.9
--- NOTE | 2024-03-28 15:17 | P.PAINPG ---
PQRS Measure Charge Sheet Comment: HISTORY OF PRESENT ILLNESS: A 68 yr old female presents today w severe and chronic LBP > 30 yrs secondary to radiculopathy, spondylosis and facet arthropathy without myelopathy for evaluation. Pt states pain level is provoked at 7 /10 in intensity, constant, localized in the lower lumbar spine, predominantly axial, dull in character w occasional shooting pain towards the back of the LLE. Pain is provoked by standing for periods > 20 min. Pain is alleviated by PT x 6 wks in Jul-September 2023, physician guided exercises/ stretches daily since Aug 2023, use of a TENS unit at PT, medications, repositioning and rest. Interventional procedures include MIGUEL ANGEL L5-S1 x1, BL MBB L4-L5/ L5-S1 x1 Medications include Zanaflex, Advil REVIEW OF ORGAN SYSTEMS: CONSTITUTIONAL: No fevers or chills. No recent weight loss. NEUROLOGICAL: + numbness and tingling along the distal extremities. No seizure disorders or headaches. MUSCULOSKELETAL: + pain PSYCHIATRIC: Denies current depression or suicidal thoughts. Physical Examinations : Constitutional : Cooperative , not in acute distress . Neurologic : Cranial nerve II to XII intact. No focal neurological deficits. Psychiatric : alert & oriented x 3. Matching mood & appropriate affect. Judgment & insight intact. Musculoskeletal : Cervical Spine Motor strength in the deltoid and bic eps: Normal right side. Normal Left side Motor strength biceps and the wrist extensors: Normal right side . Normal left side Motor strength in the triceps muscle: Normal right side. Normal left side Deep tendon reflexes: Normal at the biceps. Normal at Brachioradialis. Normal at triceps Vertebral body tenderness to deep palpation over Cervical facet loading test: positive bilaterally Spurling test: positive bilaterally Neck distraction test: positive bilaterally Nir sign: positive bilaterally Lumbar spine Motor strength lower extremities ,thigh and legs 5/5 Right side , 5/5 Left side Deep tendon reflexes : Normal Knee Jerk. Normal Ankle Jerk Vertebral body tenderness Julio Test positive Lumbar facet Loading Test: positive Right / positive Left L4-L5, L5-S1 Range of motion of the lumbar spine Flexion 30 degrees, extension 10 degrees Straight Leg Raise test: Left/ Right positive at degree Paras test: positive right / positive left. Severe tenderness over the Sacroiliac joint on the Right / Left sides Gaenslen test: positive bilaterally Seated flexion test: positive bilaterally. Sacral spine : Severe tenderness over the Sacroiliac joint: right side / left side Range of motion: Flexion of the lumbar spine <60 degrees Range of motion: Extension of the lumbar spine <20 degrees Gaenslen's Test positive Paras test: positive right side / left side Thigh Thrust Test Sacral Thrust Test Imaging: Lumbar x ray from 08/10/23 reviewed MRI non contrast of the lumbar spine form 10/20/23 reviewed Assessment/ Plan : Lumbar radiculopathy Recommendation of medication management. Percocet 7.5/325mg # 60 w 1 RF. Use, side effects, adverse reactions, safe storage discussed. Opiate/ narcotic agreement signed 02/01/24. UDS collected 03/28/24 . All questions answered. I have spent greater than 30 minutes on patient care today. Dr Barrientos was available by phone for the evaluation of this patient. The time was used to review the medical records including relevant urine studies and Prescription history (MAPs), review of the available imaging, evaluation and examination of the patient, coordination of care with the medical staff and if applicable referring physicians, as well as creation of the medical record PQRS Narrative: Smoking Status Current every day smoker Hx Alcohol Use (MH) No Home Medications: Ambulatory Orders Cetirizine HCl [Zyrtec] 10 mg PO DAILY 09/28/22 Losartan Potassium 100 mg PO DAILY 09/28/22 Omeprazole 40 mg PO DAILY 09/28/22 Aspirin [[place] Aspirin EC] 81 mg PO DAILY 11/09/23 Ibuprofen [Advil] 400 mg PO Q6HR PRN 11/09/23 Levocetirizine Dihydrochloride [Xyzal] 5 mg PO DAILY 11/09/23 Pravastatin Sodium [Pravachol] 20 mg PO DAILY 11/09/23 Sennosides/Docusate Sodium [Senna-S 8.6-50 mg Tablet] 2 each PO DAILY 11/09/23 oxyCODONE HCL/ACETAMINOPHEN [Percocet 7.5-325 mg Tablet] 1 each PO BID PRN 30 Days #60 tab 02/01/24 oxyCODONE HCL/ACETAMINOPHEN [Percocet 7.5-325 mg] 1 tab PO BID PRN 30 Days #60 tab 02/01/24 Controlled Substance Measures - Controlled Substance Measures Is patient prescribed a controlled substance at discharge?: Yes When asked, does pt state using other controlled substances?: No If prescribed controlled substance>3 days was MAPS reviewed?: Yes
[2024-03-29 10:46] LABS: Serum Amphetamine Negative; Serum Barbiturates Negative; Serum Benzodiazepine Negative; Serum Cocaine Negative; Serum Methadone Negative; Serum Opiates Negative; Serum Phencyclidine Negative; Serum Propoxyphene Negative; Serum THC (Cannabis) Negative
== END ==
LOC: PNWHC3 11:14
PROVIDERS: ATTEND Specialist
DX: M54.16 Radiculopathy, lumbar region (principal); F17.200 Nicotine dependence, unspecified, uncomplicated
CPT/HCPCS: 80307; 99211

== ENCOUNTER → 2024-05-24 | Outpatient (CLI) | payer BC, MEDICARE ==
[2024-05-24 11:19] VITALS: BP 129/87; PULSE 66; RESP 16; TEMP 97.1
--- NOTE | 2024-05-24 13:37 | P.PAINPG ---
Objective - Vital Signs Vital signs: Intake & Output 05/23/24 05/24/24 05/24/24 18:59 06:59 18:59 Weight 55.792 kg PQRS Measure Charge Sheet Comment: HISTORY OF PRESENT ILLNESS: A 68 yr old female presents today w severe and chronic LBP > 30 yrs secondary to radiculopathy, spondylosis and facet arthropathy without myelopathy for evaluation. Pt states pain level is provoked at 7 /10 in intensity, constant, localized in the lower lumbar spine, predominantly axial, dull in character w occasional shooting pain towards the back of the LLE. Pain is provoked by standing for periods > 20 min. Pain is alleviated by PT x 6 wks in Jul-September 2023, physician guided exercises/ stretches daily since Aug 2023, use of a TENS unit at PT, medications, repositioning and rest. Interventional procedures include MIGUEL ANGEL L5-S1 x1, BL MBB L4-L5/ L5-S1 x1 Medications include Zanaflex, Advil REVIEW OF ORGAN SYSTEMS: CONSTITUTIONAL: No fevers or chills. No recent weight loss. NEUROLOGICAL: + numbness and tingling along the distal ex tremities. No seizure disorders or headaches. MUSCULOSKELETAL: + pain PSYCHIATRIC: Denies current depression or suicidal thoughts. Physical Examinations : Constitutional : Cooperative , not in acute distress . Neurologic : Cranial nerve II to XII intact. No focal neurological deficits. Psychiatric : alert & oriented x 3. Matching mood & appropriate affect. Judgment & insight intact. Musculoskeletal : Cervical Spine Motor strength in the deltoid and biceps: Normal right side. Normal Left side Motor strength biceps and the wrist extensors: Normal right side . Normal left side Motor strength in the triceps muscle: Normal right side. Normal left side Deep tendon reflexes: Normal at the biceps. Normal at Brachioradialis. Normal at triceps Vertebral body tenderness to deep palpation over Cervical facet loading test: positive bilaterally Spurling test: positive bilaterally Neck distraction test: positive bilaterally Nir sign: positive bilaterally Lumbar spine Motor strength lower extremities ,thigh and legs 5/5 Right side , 5/5 Left side Deep tendon reflexes : Normal Knee Jerk. Normal Ankle Jerk Vertebral body tenderness Julio Test positive Lumbar facet Loading Test: positive Right / positive Left L4-L5, L5-S1 Range of motion of the lumbar spine Flexion 30 degrees, extension 10 degrees Straight Leg Raise test: Left/ Right positive at degree Paras test: positive right / positive left. Severe tenderness over the Sacroiliac joint on the Right / Left sides Gaenslen test: positive bilaterally Seated flexion test: positive bilaterally. Sacral spine : Severe tenderness over the Sacroiliac joint: right side / left side Range of motion: Flexion of the lumbar spine <60 degrees Range of motion: Extension of the lumbar spine <20 degrees Gaenslen's Test positive Paras test: positive right side / left side Thigh Thrust Test Sacral Thrust Test Imaging: Lumbar x ray from 08/10/23 reviewed MRI non contrast of the lumbar spine form 10/20/23 reviewed Assessment/ Plan : Lumbar radiculopathy Recommendation of medication management. Percocet 7.5/325mg # 60 w 1 RF. Use, side effects, adverse reactions, safe storage discussed. Opiate/ narcotic agreement signed 02/01/24. UDS from 03/28/24 NEG. Will repeat UDS 05/24/24. All questions answered. I have spent greater than 30 minutes on patient care today. Dr Barrientos was available by phone for the evaluation of this patient. The time was used to review the medical records including relevant urine studies and Prescription history (MAPs), review of the available imaging, evaluation and examination of the patient, coordination of care with the medical staff and if applicable referring physicians, as well as creation of the medical record PQRS Narrative: Smoking Status Current every day smoker Hx Alcohol Use (MH) No Home Medications: Ambulatory Orders Cetirizine HCl [Zyrtec] 10 mg PO DAILY 09/28/22 Losartan Potassium 100 mg PO DAILY 09/28/22 Omeprazole 40 mg PO DAILY 09/28/22 Aspirin [[place] Aspirin EC] 81 mg PO DAILY 11/09/23 Ibuprofen [Advil] 400 mg PO Q6HR PRN 11/09/23 Levocetirizine Dihydrochloride [Xyzal] 5 mg PO DAILY 11/09/23 Pravastatin Sodium [Pravachol] 20 mg PO DAILY 11/09/23 Sennosides/Docusate Sodium [Senna-S 8.6-50 mg Tablet] 2 each PO DAILY 11/09/23 oxyCODONE HCL/ACETAMINOPHEN [Percocet 7.5-325 mg] 1 each PO BID PRN 30 Days #60 tab 05/24/24 oxyCODONE HCL/ACETAMINOPHEN [Percocet 7.5-325 mg] 1 tab PO BID PRN 30 Days #60 tab 05/24/24 Controlled Substance Measures - Controlled Substance Measures Is patient prescribed a controlled substance at discharge?: Yes When asked, does pt state using other controlled substances?: Yes If prescribed controlled substance>3 days was MAPS reviewed?: Yes
== END ==
LOC: PNWHC3 10:32
PROVIDERS: ATTEND Specialist
DX: M54.16 Radiculopathy, lumbar region (principal); F17.200 Nicotine dependence, unspecified, uncomplicated
CPT/HCPCS: 80307; 99211

== ENCOUNTER → 2024-07-30 | Outpatient (CLI) | payer BC, MEDICARE ==
[2024-07-30 09:00] VITALS: BP 192/80; PULSE 49; RESP 16; TEMP 96.8
--- NOTE | 2024-07-30 16:49 | P.PAINPG ---
PQRS Measure Charge Sheet Comment: HISTORY OF PRESENT ILLNESS: A 68 yr old female presents today w severe and chronic LBP > 30 yrs secondary to radiculopathy, spondylosis and facet arthropathy without myelopathy for evaluation. Pt states pain level is provoked at 7 /10 in intensity, constant, localized in the lower lumbar spine, predominantly axial, dull in character w occasional shooting pain towards the back of the LLE. Pain is provoked by standing for periods > 20 min. Pain is alleviated by PT x 6 wks in Jul-September 2023, physician guided exercises/ stretches daily since Aug 2023, use of a TENS unit at PT, medications, repositioning and rest. Interventional procedures include MIGUEL ANGEL L5-S1 x1, BL MBB L4-L5/ L5-S1 x1 Medications include Zanaflex, Advil REVIEW OF ORGAN SYSTEMS: CONSTITUTIONAL: No fevers or chills. No recent weight loss. NEUROLOGICAL: + numbness and tingling along the distal extremities. No seizure disorders or headaches. MUSCULOSKELETAL: + pain PSYCHIATRIC: Denies current depression or suicidal thoughts. Physical Examinations : Constitutional : Cooperative , not in acute distress . Neurologic : Cranial nerve II to XII intact. No focal neurological deficits. Psychiatric : alert & oriented x 3. Matching mood & appropriate affect. Judgment & insight intact. Musculoskeletal : Cervical Spine Motor strength in the deltoid and bic eps: Normal right side. Normal Left side Motor strength biceps and the wrist extensors: Normal right side . Normal left side Motor strength in the triceps muscle: Normal right side. Normal left side Deep tendon reflexes: Normal at the biceps. Normal at Brachioradialis. Normal at triceps Vertebral body tenderness to deep palpation over Cervical facet loading test: positive bilaterally Spurling test: positive bilaterally Neck distraction test: positive bilaterally Nir sign: positive bilaterally Lumbar spine Motor strength lower extremities ,thigh and legs 5/5 Right side , 5/5 Left side Deep tendon reflexes : Normal Knee Jerk. Normal Ankle Jerk Vertebral body tenderness Julio Test positive Lumbar facet Loading Test: positive Right / positive Left L4-L5, L5-S1 Range of motion of the lumbar spine Flexion 30 degrees, extension 10 degrees Straight Leg Raise test: Left/ Right positive at degree Paras test: positive right / positive left. Severe tenderness over the Sacroiliac joint on the Right / Left sides Gaenslen test: positive bilaterally Seated flexion test: positive bilaterally. Sacral spine : Severe tenderness over the Sacroiliac joint: right side / left side Range of motion: Flexion of the lumbar spine <60 degrees Range of motion: Extension of the lumbar spine <20 degrees Gaenslen's Test positive Paras test: positive right side / left side Thigh Thrust Test Sacral Thrust Test Imaging: Lumbar x ray from 08/10/23 reviewed MRI non contrast of the lumbar spine form 10/20/23 reviewed Assessment/ Plan : Lumbar radiculopathy Recommendation of medication management. Percocet 7.5/325mg # 60 w 1 RF. Use, side effects, adverse reactions, safe storage discussed. Opiate/ narcotic agreement signed 02/01/24. UDS from 05/24/24 reviewed and consistent. All questions answered. I have spent greater than 30 minutes on patient care today. Dr Barrientos was available by phone for the evaluation of this patient. The time was used to review the medical records including relevant urine studies and Prescription history (MAPs), review of the available imaging, evaluation and examination of the patient, coordination of care with the medical staff and if applicable referring physicians, as well as creation of the medical record - Pain Location Bilateral Lower Back Non-Pharmacological Interventions: Inactivity, Physical Therapy, Position/Reposition Pharmacological Interventions: PRN Medication, Scheduled Medication, Topical Medication PQRS Narrative: Smoking Status Current every day smoker Hx Alcohol Use (MH) No Home Medications: Ambulatory Orders Cetirizine HCl [Zyrtec] 10 mg PO DAILY 09/28/22 Losartan Potassium 100 mg PO DAILY 09/28/22 Omeprazole 40 mg PO DAILY 09/28/22 Aspirin [[place] Aspirin EC] 81 mg PO DAILY 11/09/23 Ibuprofen [Advil] 400 mg PO Q6HR PRN 11/09/23 Levocetirizine Dihydrochloride [Xyzal] 5 mg PO DAILY 11/09/23 Pravastatin Sodium [Pravachol] 20 mg PO DAILY 11/09/23 Sennosides/Docusate Sodium [Senna-S 8.6-50 mg Tablet] 2 each PO DAILY 11/09/23 oxyCODONE HCL/ACETAMINOPHEN [Percocet 7.5-325 mg] 1 each PO BID PRN 30 Days #60 tab 07/30/24 oxyCODONE HCL/ACETAMINOPHEN [Percocet 7.5-325 mg] 1 tab PO BID PRN 30 Days #60 tab 07/30/24 Controlled Substance Measures - Controlled Substance Measures Is patient prescribed a controlled substance at discharge?: Yes When asked, does pt state using other controlled substances?: Yes If prescribed controlled substance>3 days was MAPS reviewed?: Yes
== END ==
LOC: PNWHC3 08:41
PROVIDERS: ATTEND Specialist
DX: M54.16 Radiculopathy, lumbar region (principal); F17.210 Nicotine dependence, cigarettes, uncomplicated
CPT/HCPCS: 99211

== ENCOUNTER → 2024-10-10 | Outpatient (CLI) | payer BC, MEDICARE | LOC: PNWHC3 08:49 | PROVIDERS: ATTEND Anesthesiology | DX: Z53.9 Procedure and treatment not carried out, unspecified reason (principal) ==

== ENCOUNTER → 2024-11-07 | Outpatient (CLI) | payer BC, MEDICARE ==
[2024-11-07 09:28] VITALS: BP 107/73; PULSE 51; RESP 19
--- NOTE | 2024-11-07 15:37 | P.PAINPG ---
PQRS Measure Charge Sheet Comment: HISTORY OF PRESENT ILLNESS: A 69 yr old female presents today w severe and chronic LBP > 30 yrs secondary to radiculopathy, spondylosis and facet arthropathy without myelopathy for evaluation. Pt states pain level is provoked at 8 /10 in intensity, constant, localized in the lower lumbar spine, predominantly axial, dull in character w occasional shooting pain towards the back of the LLE. Pain is provoked by standing for periods > 20 min. Pain is alleviated by PT x 6 wks in Jul-September 2023, physician guided exercises/ stretches daily since Aug 2023, use of a TENS unit at PT, medications, repositioning and rest. Medication only lasts a couple of hours. Pt is severely arthritic. Interventional procedures include MIGUEL ANGEL L5-S1 x1, BL MBB L4-L5/ L5-S1 x1 Medications include Zanaflex, Advil REVIEW OF ORGAN SYSTEMS: CONSTITUTIONAL: No fevers or chills. No recent weight loss. NEUROLOGICAL: + numbness and tingling along the distal extremities. No seizure disorders or headaches. MUSCULOSKELETAL: + pain PSYCHIATRIC: Denies current depression or suicidal thoughts. Physical Examinations : Constitutional : Cooperative , not in acute distress . Neurologic : Cranial nerve II to XII intact. No focal neurological deficits. Psychiatric : alert & oriented x 3. Matching mood & appropriate affect. Judgment & insight intact. Musculoskeletal : Cervical Spine Motor strength in the deltoid and biceps: Normal right side. Normal Left side Motor strength biceps and the wrist extensors: Normal right side . Normal left side Motor strength in the triceps muscle: Normal right side. Normal left side Deep tendon reflexes: Normal at the biceps. Normal at Brachioradialis. Normal at triceps Vertebral body tenderness to deep palpation over Cervical facet loading test: positive bilaterally Spurling test: positive bilaterally Neck distraction test: positive bilaterally Nir sign: positive bilaterally Lumbar spine Motor strength lower extremities ,thigh and legs 5/5 Right side , 5/5 Left side Deep tendon reflexes : Normal Knee Jerk. Normal Ankle Jerk Vertebral body tenderness Julio Test positive Lumbar facet Loading Test: positive Right / positive Left L4-L5, L5-S1 Range of motion of the lumbar spine Flexion 30 degrees, extension 10 degrees Straight Leg Raise test: Left/ Right positive at degree Paras test: positive right / positive left. Severe tenderness over the Sacroiliac joint on the Right / Left sides Gaenslen test: positive bilaterally Seated flexion test: positive bilaterally. Sacral spine : Severe tenderness over the Sacroiliac joint: right side / left side Range of motion: Flexion of the lumbar spine <60 degrees Range of motion: Extension of the lumbar spine <20 degrees Gaenslen's Test positive Paras test: positive right side / left side Thigh Thrust Test Sacral Thrust Test Imaging: Lumbar x ray from 08/10/23 reviewed MRI non contrast of the lumbar spine form 10/20/23 reviewed Assessment/ Plan : Lumbar radiculopathy Recommendation of medication management. Percocet 7.5/325mg # 120 w 1 RF. Use, side effects, adverse reactions, safe storage discussed. Opiate/ narcotic agreement signed 11/07/24. UDS from 05/24/24 reviewed and consistent. All questions answered. I have spent greater than 30 minutes on patient care today. Dr Barrientos was available by phone for the evaluation of this patient. The time was used to review the medical records including relevant urine studies and Prescription history (MAPs), review of the available imaging, evaluation and examination of the patient, coordination of care with the medical staff and if applicable referring physicians, as well as creation of the medical record PQRS Narrative: Smoking Status Current every day smoker Hx Alcohol Use (MH) No Home Medications: Ambulatory Orders Cetirizine HCl [Zyrtec] 10 mg PO DAILY 09/28/22 Losartan Potassium 100 mg PO DAILY 09/28/22 Omeprazole 40 mg PO DAILY 09/28/22 Aspirin [[facility] Aspirin EC] 81 mg PO DAILY 11/09/23 Ibuprofen [Advil] 400 mg PO Q6HR PRN 11/09/23 Levocetirizine Dihydrochloride [Xyzal] 5 mg PO DAILY 11/09/23 Pravastatin Sodium [Pravachol] 20 mg PO DAILY 11/09/23 Sennosides/Docusate Sodium [Senna-S 8.6-50 mg Tablet] 2 each PO DAILY 11/09/23 oxyCODONE HCL/ACETAMINOPHEN [Percocet 7.5-325 mg] 1 each PO BID PRN 30 Days #60 tab 07/30/24 oxyCODONE HCL/ACETAMINOPHEN [Percocet 7.5-325 mg] 1 tab PO BID PRN 30 Days #60 tab 07/30/24 oxyCODONE HCL/ACETAMINOPHEN [Percocet 7.5-325 mg] 1 tab PO BID PRN 30 Days #60 tab 09/19/24 oxyCODONE HCL/ACETAMINOPHEN [Percocet 7.5-325 mg] 1 tab PO BID PRN 30 Days #60 tab 10/10/24 Controlled Substance Measures - Controlled Substance Measures Is patient prescribed a controlled substance at discharge?: Yes When asked, does pt state using other controlled substances?: Yes If prescribed controlled substance>3 days was MAPS reviewed?: Yes If Rx opioid, was Start Talking consent form obtained?: Yes Was information provided regarding opioid addiction?: Yes
== END ==
LOC: PNWHC3 08:47
PROVIDERS: ATTEND Specialist
DX: M47.26 Other spondylosis with radiculopathy, lumbar region (principal); F17.200 Nicotine dependence, unspecified, uncomplicated
CPT/HCPCS: 99212